=== PATIENT | female | born 2000 | race Caucasian/White ===

== ENCOUNTER 2019-01-08 22:14 | Emergency (ER) | payer OTHER ==
[~2019-01-08] VITALS: Ht 165.1 cm; Wt 54.4 kg
[2019-01-08 22:25] VITALS: BP 143/88
--- NOTE | 2019-01-08 22:25 | NUR ---
TO BED # 02 AMBULATORY
--- NOTE | 2019-01-08 22:26 | NUR ---
ASSESSMENT PREFORMED. SEE ASSESSMENT.
--- NOTE | 2019-01-08 22:30 | NUR ---
PATIENT SITTING UP IN BED, STATES HER PAIN IS BEARABLE. PLACED IN GOWN. GIVEN WARM BLANKET. BED IN LOW LOCKED POSTION, WITH SIDE RAIL UP ON ONE SIDE.
--- NOTE | 2019-01-08 22:45 | NUR ---
US AT BEDSIDE
--- NOTE | 2019-01-08 22:50 | NUR ---
DR SAMAYOA AT BEDSIDE.
[2019-01-08 23:33] LABS: RED BLOOD CELL COUNT(AUTO) 4.71 MIL/uL (4.20-5.40)
[2019-01-08 23:36] LABS: BASOPHILS % (AUTO) 0.5 % (0.0-2.0); EOSINOPHILS # (AUTO) 0.1 K/uL (0-0.4); HEMATOCRIT 43.2 % (36-48); HEMOGLOBIN 14.2 g/dL (12.0-16.0); LYMPHOCYTES # (AUTO) 2.8 K/uL (2.5-16.5); LYMPHOCYTES % (AUTO) 35.3 % (20.5-51.1); MEAN CORPUSCULAR HEMOGLOBIN 30 pg (27-31); MEAN CORPUSCULAR HGB CONC 33 g/dL (33-37); MEAN CORPUSCULAR VOLUME 91.7 fL (80-94); MONOCYTES # (AUTO) 0.6 K/uL (0.8-1.0); MONOCYTES % (AUTO) 7.4 % (1.7-9.3); NEUTROPHILS # (AUTO) 4.4 K/uL (1.8-7.7); NEUTROPHILS % (AUTO) 55.8 % (42.2-75.2); PLATELET COUNT (AUTO) 273 K/uL (140-450); RED CELL DISTRIBUTION WIDTH 12.5 % (11.6-13.7); WHITE BLOOD COUNT (AUTO) 7.9 K/uL (4.5-11.0)
[2019-01-08 23:38] LABS: APPEARANCE,URINE CLEAR (CLEAR); BILIRUBIN,URINE NEGATIVE (NEGATIVE); BLOOD, URINE NEGATIVE (NEGATIVE); COLOR,URINE YELLOW (YELLOW); LEUKOCYTE ESTERASE ,URINE NEGATIVE (NEGATIVE); NITRITE, URINE NEGATIVE (NEGATIVE); PH,URINE 6.5 (5.0-9.0); UGLUCOSE NEGATIVE (NEGATIVE)
[2019-01-08 23:57] VITALS: BP 143/88
--- NOTE | 2019-01-08 23:57 | NUR ---
Patient discharged with v/s stable. Written and verbal after care instructions given and explained. Patient verbalized understanding. Ambulatory with steady gait. All questions addressed prior to discharge. Advised to follow up with PMD.
== END 2019-01-08 23:57 | disposition home or self-care (01) ==
LOC: MED 22:14
DX: N93.9 Abnormal uterine and vaginal bleeding, unspecified (principal)
CPT/HCPCS: 36415; 76817; 81003; 84702; 85025; 99284; Q0092